=== PATIENT | male | born 1960 | race Caucasian/White ===

== ENCOUNTER 2017-09-30 10:05 | Emergency (ER) | payer BC ==
[2017-09-30 10:17] VITALS: BP 149/98
[2017-09-30] MEDS ORDERED: TETRACAINE HCL 150 DROP BTL ONE (10:25)
[2017-09-30] MEDS ORDERED: TETRACAINE HCL 150 DROP BTL EACHEYE ONE (10:25)
[2017-09-30] MEDS ORDERED: CYCLOPENTOLATE HCL 20 DROP BTL RIGHTEYE ONE (10:39)
[2017-09-30] MEDS ORDERED: CYCLOPENTOLATE HCL 20 DROP BTL ONE (10:41)
--- NOTE | 2017-09-30 10:48 | ERNOTE ---
ENT HPI Presenting Symptoms: eye pain Time Seen by Provider: 09/30/17 10:18 Source: patient Exam Limitations: no limitations - Immun/Allergies/Home Medications Immunizations: IMMUNIZATION HX Immunizations Up to Date Yes: 2 years ago History of Influenza Vaccine No Hx Pneumococcal Vaccination No Allergies/Adverse Reactions: Allergies Allergy/AdvReac Type Severity Reaction Status Date / Time No Known Allergies Allergy Verified 09/30/17 10:10 Home Medications: HOME MEDICATIONS Polymyxin B Sulf/Trimethoprim [Polytrim Eye Drops] 2 drop RIGHTEYE QID #10 ml [Last Taken Unknown] - History of Present Illness Narrative: Patient was grinding metal yesterday and feels as though he got a piece of metal in his right eye. Complains of moderate pain in the right eye, worse when exposed to sunlight and has been having excessive tearing as well as erythema in the eye. Severity: Present: moderate ENT Location: Present: eye (R) Prearrival Treatment: Present: no prearrival treatment Modifying Factors - Improves: Reports: nothing Modifying Factors - Worsens: Reports: other - light Associated Symptoms - ENT: Reports: denies symptoms Review of Systems - Review of Systems Constitutional: Present: See HPI EYE: Present: see HPI ENT: Present: no symptoms reported Respiratory: Present: no symptoms reported Cardiology: Present: no symptoms reported Gastrointestinal/Abdominal: Present: no symptoms reported Genitourinary: Present: no symptoms reported Musculoskeletal: Present: no symptoms reported Skin: Present: no symptoms reported Neurological: Present: no symptoms reported Endocrine: Present: no symptoms reported Hematologic/Lymphatic: Present: no symptoms reported Psych: Present: no symptoms reported - Patient's Past Medical History Patient History - Medical: No pertinent hx Patient History - Cardiac/Respiratory: No pertinent hx Patient History - Cancer: No Hx of Cancer Patient History - Surgical Procedures: Other Patient History - Other: None - Family History Mother Family History - Medical: No pertinent hx Family History - Cardiac/Respiratory: No pertinent hx Family History - Cancer: No pertinent family hx Father Family History - Medical: No pertinent hx Family History - Cardiac/Respiratory: No pertinent hx Family History - Cancer: Prostate - Social History Living Situations: alone Abuse History: No History of abuse Psych History: No pertinent hx Smoking Status: Never smoker Have you smoked in the past 12 months: No Do you dip or chew tobacco: No Alcohol Use: heavy Drug Use: none - Immunizations Immunizations Up to Date: Yes - 2 years ago Hx Pneumococcal Vaccination: No History of Influenza Vaccine: No Physical Exam - Physical Exam General Appearance: Present: wd/wn, alert, moderate distress Eye Exam: Normal inspection: left, PERRL: bilateral, EOMI: bilateral, Other: right - metallic foreign body at the 3 o'clock position right cornea Ears, Nose, Throat: Present: normal ENT inspection, H, normal pharynx Neck: Present: normal inspection, nontender Respiratory: Present: no respiratory distress, normal breath sounds, no accessory muscle use, chest nontender, lungs clear Cardiovascular/Chest: Present: regular rate, rhythm, no murmur, normal peripheral pulses Gastrointestinal/Abdominal: Present: normal bowel sounds, nontender, nondistended, soft, no organomegaly Rectal Exam: Present: deferred Back Exam: Present: normal inspection, normal range of motion Extremity Exam: Present: normal inspection, non-tender, no edema, normal range of motion Neurological Exam: Present: alert, oriented, normal mood/affect Skin Exam: Present: normal color, warm/dry Lymphatic Exam: Present: no adenopathy ED Progress - Vital Signs Patient's Vital Signs:: I have reviewed the patient's vital signs. Vital Signs: Vital Signs 09/30/17 09/30/17 10:11 10:20 Temperature 36.9 C 36.9 C Pulse Rate 69 69 Respiratory 18 18 Rate Blood Pressure 149/98 149/98 O2 Sat by Pulse 97 97 Oximetry - Progress/Reassessment Chief Complaint: Eye Injury/Trauma Procedures Eye Location: right eye Tetracaine Drops Administered: Yes Cyclogel 2 Drops Administered: right eye Eye - Cornea: Right: foreign body Eye FB Removal: other - removed with ophthalmic zuleika Antibiotic Ointment/Drps Admin: right eye Complications: Pt orin procedure well Plan - Plan Plan: Cyclogyl was instilled in the right eye and patient will be sent home on Polytrim. All residual rust ring was removed along with the metallic foreign body. Departure Clinical Impression: Corneal FB (foreign body) Qualifiers: Encounter type: initial encounter Laterality: right Qualified Code(s): T15.01XA - Foreign body in cornea, right eye, initial encounter - Departure Disposition: Home self-care Condition: Good Instructions: Corneal Abrasion, [id number] Prescriptions: Polymyxin B Sulf/Trimethoprim [Polytrim Eye Drops] 2 drop RIGHTEYE QID #10 ml
== END 2017-09-30 10:50 | disposition home or self-care (01) ==
LOC: ER 10:05
PROC: 08C8XZZ Extirpation of Matter from Right Cornea, External Approach (ICD-10-PCS; principal; 2017-09-30)
DX: T15.01XA Foreign body in cornea, right eye, initial encounter (principal); W31.89XA Contact with other specified machinery, initial encounter; Y93.89 Activity, other specified